=== PATIENT | female | born 1950 | race Caucasian/White ===

== ENCOUNTER 2016-12-14 18:32 | Emergency (ER) | payer BC ==
--- NOTE | 2016-12-14 19:43 | REP ---
Supine abdomen: Comparisons 09/18/2016. No calcifications are identified projected over the kidneys, ureters or urinary bladder. This is unchanged from the prior study. There are surgical clips in the abdominal right upper quadrant and right lower quadrant. This is unchanged. There is a phlebolith inferiorly in the pelvis on the right, unchanged. There is degenerative disc disease in the lumbar spine. The skeletal structures and soft tissues are otherwise unremarkable Signed by Bart Mcgrath MD 12/14/2016 07:35 P
[2016-12-14 19:52] LABS: MEAN CORPUSCULAR HEMOGLOBIN 29.9 pg (27.0-33.0); MEAN CORPUSCULAR HGB CONC 32.2 g/dl (32.0-36.5); MEAN CORPUSCULAR VOLUME 93.1 fl (80.0-96.0); RED CELL DISTRIBUTION WIDTH 14.3 % (11.5-14.5); WHITE BLOOD COUNT 8.2 K/mm3 (4.0-10.0)
[2016-12-14 20:16] LABS: CALCIUM LEVEL 8.9 MG/DL (8.8-10.2); CREATININE FOR GFR 1.72 MG/DL (0.55-1.02); GLOMERULAR FILTRATION RATE 31.8 (>45); POTASSIUM SERUM 4.3 MEQ/L (3.5-5.1)
--- NOTE | 2016-12-14 20:46 | EDDOCDS ---
Physician Documentation [facility] Name: Love John Age: 66 yrs Sex: Female : 1950 Arrival Date: 12/14/2016 Time: 18:32 Bed I8 / 16 Private MD: Santo Roberts Disposition: 12/14/16 20:38 Discharged to Home/Self Care. Impression: Unspecified renal colic. - Condition is Stable. - Discharge Instructions: Kidney Stones, Ureteral Colic. - Prescriptions for Percocet 5- 325 mg Oral Tablet - take 1 tablet by ORAL route every 6 hours As needed MDD: 4 tabs; 20 tablet. Zofran 4 mg Oral Tablet - take 1 tablet by ORAL route 4 times per day As needed; 10 tablet. - Medication Reconciliation, Local Pharmacy Hours form. - Follow up: Arthur Nance; When: 4 - 5 days; Reason: Continuance of care. - Problem is an ongoing problem. - Symptoms are unchanged. Historical: - Allergies: Cardia; - Home Meds: 1. Xarelto 20 mg oral tab 1 tab once daily in evening (Last dose: 12/13/2016) 2. levothyroxine 175 mcg Oral tab 1 tab once daily 3. Protonix 40 mg Oral grps 1 packet once daily 4. potassium citrate 15 mEq oral TbER 2 tabs 2 times per day 5. propafenone 300 mg Oral tab bid 6. metoprolol tartrate 50 mg Oral tab 1 tab 2 times per day - PMHx: Atrial Fib; Kidney stones; Hypothyroidism; Hypertension; GERD; - PSHx: Hysterectomy; Cholecystectomy; Hernia repair; Appendectomy; Tubal ligation; - Social history: Smoking status: Patient states former smoker of tobacco. No barriers to communication noted, The patient speaks fluent Fijian, Speaks appropriately for age. - Family history: Not pertinent. - : The pt / caregiver states he / she is on anticoagulants: Xarelto Home medication list is obtained from the patient. - Exposure Risk Screening:: None identified. Vital Signs: 12/14 18:34 BP 152 / 90; Pulse 75; Resp 18 S; Temp 97.8(O); Pulse Ox 96% on R/A; Weight 121.11 kg / gr2 267 lbs (R); Height 5 ft. 1 in. (154.94 cm) (R); Pain 0/10; 20:43 BP 148 / 89; Pulse 80; Resp 18; Temp 97.9(O); Pulse Ox 99% on R/A; Pain 0/10; kas2 18:34 Body Mass Index 50.45 (121.11 kg, 154.94 cm) gr2 MDM: 19:12 KUB Ordered. EDMS 19:25 CBC Ordered. EDMS 19:25 BMP Ordered. EDMS 20:32 CBC Reviewed. ke 20:32 BMP Reviewed. ke 20:32 KUB Reviewed. ke Signatures: Dispatcher [employer] EDMS Marcial Sandoval, BAGGAGE CHECKER Mandy Duncan RN RN Keke Holman RN RN kas2 MTDD
--- NOTE | 2016-12-14 20:46 | EDDOCDS ---
Nurse's Notes [facility] Name: Love John Age: 66 yrs Sex: Female : 1950 Arrival Date: 12/14/2016 Time: 18:32 Bed I8 / 16 Private MD: Santo Roberts Diagnosis: Unspecified renal colic Presentation: 12/14 18:37 Presenting complaint: Patient states: Was calloed by Dr Rosario following a CT scan and jo3 told that she had a kidney stone in her ureter. Having blood in urine with 2-3 small clots. Taking Xarelto. Acute neurological deficits are not present. Mechanism of Injury: No Mechanism of Injury. Adult Sepsis Screening: The patient does not have new or worsening altered mentation. Patient's respiratory rate is less than 22. Systolic blood pressure is greater than 100. Patient has a qSOFA score of 0- Negative Sepsis Screen. Suicide/Homicide risk assessment- the patient denies having any suicidal and/or homicidal ideations and does not present with any other emotional, behavioral or mental health complaints. 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 Transition of care: patient was not received from another setting of care. 18:37 Acuity: FERMIN Level 3 jo3 18:37 Method Of Arrival: Walkin/Carried/Asstd jo3 Triage Assessment: 18:43 General: Appears in no apparent distress, Behavior is appropriate for age, cooperative. jo3 Pain: Denies pain. Pt Declines HIV testing. Neurological: Level of Consciousness is awake, alert, Oriented to person, place, time. Respiratory: Airway is patent Respiratory effort is even, unlabored. Derm: Skin is pink, warm & dry. Historical: - Allergies: Cardia; - Home Meds: 1. Xarelto 20 mg oral tab 1 tab once daily in evening (Last dose: 12/13/2016) 2. levothyroxine 175 mcg Oral tab 1 tab once daily 3. Protonix 40 mg Oral grps 1 packet once daily 4. potassium citrate 15 mEq oral TbER 2 tabs 2 times per day 5. propafenone 300 mg Oral tab bid 6. metoprolol tartrate 50 mg Oral tab 1 tab 2 times per day - PMHx: Atrial Fib; Kidney stones; Hypothyroidism; Hypertension; GERD; - PSHx: Hysterectomy; Cholecystectomy; Hernia repair; Appendectomy; Tubal ligation; - Social history: Smoking status: Patient states former smoker of tobacco. No barriers to communication noted, The patient speaks fluent Pashto, Speaks appropriately for age. - Family history: Not pertinent. - : The pt / caregiver states he / she is on anticoagulants: Xarelto Home medication list is obtained from the patient. - Exposure Risk Screening:: None identified. Screenin:08 Screening information is obtained from the patient. Fall risk: No risks identified. kas2 Assistance ADL's: requires no assistance with activities of daily living. Abuse/DV Screen: The patient / caregiver reports he/she is: not in a situation that causes fear, pain or injury. Nutritional screening: No deficits noted. Advance Directives: Currently, there is no health care proxy. There is no active DNR order. There is no living will. There is no Power of Sanitary Engineering Teacher. home support is adequate. Assessment: 19:06 General: Appears in no apparent distress, comfortable, well nourished, well groomed, kas2 Behavior is appropriate for age, cooperative. Pain: Denies pain. Neurological: Level of Consciousness is awake, alert, Oriented to person, place, time. Cardiovascular: Rhythm is regular. Respiratory: Airway is patent Respiratory effort is even, unlabored, Respiratory pattern is regular, symmetrical. : Denies burning with urination, inability to void, pain urinary frequency, urgency. Derm: Skin is intact, Skin is dry, Skin is pink, warm & dry. Skin temperature is warm. Musculoskeletal: No deficits noted. Range of motion intact in all extremities. 20:10 General: Patient sitting up in bed with at bedside. Denies pain or discomfort kas2 at this time. Appears comfortable. Call patel within reach. Will continue to monitor.. 20:25 Musculoskeletal:. kas2 Vital Signs: 18:34 BP 152 / 90; Pulse 75; Resp 18 S; Temp 97.8(O); Pulse Ox 96% on R/A; Weight 121.11 kg gr2 (R); Height 5 ft. 1 in. (154.94 cm) (R); Pain 0/10; 20:43 BP 148 / 89; Pulse 80; Resp 18; Temp 97.9(O); Pulse Ox 99% on R/A; Pain 0/10; kas2 18:34 Body Mass Index 50.45 (121.11 kg, 154.94 cm) gr2 Vitals: 18:34 Log In Time: December 14, 2016 at 18:34. gr2 ED Course: 18:33 Patient visited by Gregoria Irvin. gr2 18:33 Patient moved to Waiting gr2 18:34 Santo Roberts is Private Physician. gr2 18:35 Patient visited by Gregoria Irvin. gr2 18:35 Patient moved to Pre RCE gr2 18:39 Triage Initiated jo3 18:44 Patient visited by Mandy Duffy RN. jo3 18:52 Patient moved to I8 / 16 js15 18:53 Marcial Sandoval FNP [facility]. ke 18:53 Patient visited by Marcial Sandoval FNP. ke 18:53 Patient visited by Marcial Sandoval FNP. ke 19:08 Patient visited by Keke Myles RN. kas2 19:41 Patient visited by Marcial Sandoval FNP. ke 19:48 No procedures done that require assistance. Labs drawn. (by ED staff). Sent per order kas to lab. 19:49 Patient visited by Keke Myles RN. kas2 19:49 KUB Returned. EDMS 19:54 Patient visited by Keke Myles RN. kas2 20:12 Patient visited by Keke Myles RN. kas2 20:38 Arthur Nance is Referral Physician. ke 20:44 The patient / caregiver is instructed regarding the plan of care and ED course. kas2 20:44 No IV's were initiated during this patient's visit. kas2 Order Results: Lab Order: CBC; SPEC'M 12/14/16 19:37 Test: WHITE BLOOD COUNT; Value: 8.2; Range: 4.0-10.0; Units: K/mm3; Status: F Test: RED BLOOD COUNT; Value: 3.86; Range: 4.00-5.40; Abnormal: Below low normal; Units: M/mm3; Status: F Test: HEMOGLOBIN; Value: 11.6; Range: 12.0-16.0; Abnormal: Below low normal; Units: g/dl; Status: F Test: HEMATOCRIT; Value: 35.9; Range: 36.0-47.0; Abnormal: Below low normal; Units: %; Status: F Test: MEAN CORPUSCULAR VOLUME; Value: 93.1; Range: 80.0-96.0; Units: fl; Status: F Test: MEAN CORPUSCULAR HEMOGLOBIN; Value: 29.9; Range: 27.0-33.0; Units: pg; Status: F Test: MEAN CORPUSCULAR HGB CONC; Value: 32.2; Range: 32.0-36.5; Units: g/dl; Status: F Test: RED CELL DISTRIBUTION WIDTH; Value: 14.3; Range: 11.5-14.5; Units: %; Status: F Test: PLATELET COUNT, AUTOMATED; Value: 198; Range: 150-450; Units: k/mm3; Status: F Lab Order: [facility] 12/14/16 19:37 Test: GLUCOSE, FASTING; Value: 126; Range: 80-110; Abnormal: Above high normal; Units: MG/DL; Status: F Test: BLOOD UREA NITROGEN; Value: 27; Range: 7-18; Abnormal: Above high normal; Units: MG/DL; Status: F Test: CREATININE FOR GFR; Value: 1.72; Range: 0.55-1.02; Abnormal: Above high normal; Units: MG/DL; Status: F Test: GLOMERULAR FILTRATION RATE; Value: 31.8; Range: >45; Abnormal: Below low normal; Status: F Test: SODIUM LEVEL; Value: 141; Range: 136-145; Units: MEQ/L; Status: F Test: POTASSIUM SERUM; Value: 4.3; Range: 3.5-5.1; Units: MEQ/L; Status: F Test: CHLORIDE LEVEL; Value: 107; Range: 98-107; Units: MEQ/L; Status: F Test: CARBON DIOXIDE LEVEL; Value: 32; Range: 21-32; Units: MEQ/L; Status: F Test: ANION GAP; Value: 2; Range: 8-16; Abnormal: Below low normal; Units: MEQ/L; Status: F Test: CALCIUM LEVEL; Value: 8.9; Range: 8.8-10.2; Units: MG/DL; Status: F Test Note: ; Units are mL/min/1.73 m2 Chronic Kidney Disease Staging per NKF: Stage I & II GFR >=60 Normal to Mildly Decreased Stage III GFR 30-59 Moderately Decreased Stage IV GFR 15-29 Severely Decreased Stage V GFR <15 Very Little GFR Left ESRD GFR <15 on AUTOMOBILE BODY REPAIRER HELPER Radiology Order: KUB Test: KUB REASON FOR EXAMINATION: Renal colic; Supine abdomen:; ; Comparisons 09/18/2016.; ; No calcifications are identified projected over the kidneys, ureters or urinary; bladder. This is unchanged from the prior study.; ; There are surgical clips in the abdominal right upper quadrant and right lower; quadrant. This is unchanged.; ; There is a phlebolith inferiorly in the pelvis on the right, unchanged.; ; There is degenerative disc disease in the lumbar spine.; ; The skeletal structures and soft tissues are otherwise unremarkable; ; ; ; ; Signed by; Bart Mcgrath MD 12/14/2016 07:35 P; Outcome: 20:38 Discharge ordered by Provider. ke 20:44 Discharge Assessment: patient administered narcotics - no. The following High Risk kas2 Discharge criteria are identified: None. Discharged to home ambulatory, with significant other. Condition: good Condition: stable Condition: improved. Ultrasound Study completed. Property :Personal belongings accompany Pt. 20:45 Patient left the ED. kas2 Signatures: Dispatcher [employer] EDMarcial Graham, STEAM AND GAS TURBINES ASSEMBLER Mandy DuncanRN RN Gregoria Knight gr2 Citlaly Cardenas RN RN js15 Keke MylesRN RN ivanna2 MTDSadia
--- NOTE | 2016-12-16 21:46 | EDDOCDS ---
Physician Documentation [facility] Name: Love John Age: 66 yrs Sex: Female : 1950 Arrival Date: 12/14/2016 Time: 18:32 Bed I8 / 16 Private MD: Santo Roberts Disposition: 12/14/16 20:38 Discharged to Home/Self Care. Impression: Unspecified renal colic. - Condition is Stable. - Discharge Instructions: Kidney Stones, Ureteral Colic. - Prescriptions for Percocet 5- 325 mg Oral Tablet - take 1 tablet by ORAL route every 6 hours As needed MDD: 4 tabs; 20 tablet. Zofran 4 mg Oral Tablet - take 1 tablet by ORAL route 4 times per day As needed; 10 tablet. - Medication Reconciliation, Local Pharmacy Hours form. - Follow up: Arthur Nance; When: 4 - 5 days; Reason: Continuance of care. - Problem is an ongoing problem. - Symptoms are unchanged. Historical: - Allergies: Cardia; - Home Meds: 1. Xarelto 20 mg oral tab 1 tab once daily in evening (Last dose: 12/13/2016) 2. levothyroxine 175 mcg Oral tab 1 tab once daily 3. Protonix 40 mg Oral grps 1 packet once daily 4. potassium citrate 15 mEq oral TbER 2 tabs 2 times per day 5. propafenone 300 mg Oral tab bid 6. metoprolol tartrate 50 mg Oral tab 1 tab 2 times per day - PMHx: Atrial Fib; Kidney stones; Hypothyroidism; Hypertension; GERD; - PSHx: Hysterectomy; Cholecystectomy; Hernia repair; Appendectomy; Tubal ligation; - Social history: Smoking status: Patient states former smoker of tobacco. No barriers to communication noted, The patient speaks fluent Maldivian, Speaks appropriately for age. - Family history: Not pertinent. - : The pt / caregiver states he / she is on anticoagulants: Xarelto Home medication list is obtained from the patient. - Exposure Risk Screening:: None identified. Vital Signs: 12/14 18:34 BP 152 / 90; Pulse 75; Resp 18 S; Temp 97.8(O); Pulse Ox 96% on R/A; Weight 121.11 kg / gr2 267 lbs (R); Height 5 ft. 1 in. (154.94 cm) (R); Pain 0/10; 20:43 BP 148 / 89; Pulse 80; Resp 18; Temp 97.9(O); Pulse Ox 99% on R/A; Pain 0/10; kas2 18:34 Body Mass Index 50.45 (121.11 kg, 154.94 cm) gr2 MDM: 19:12 KUB Ordered. EDMS 19:25 CBC Ordered. EDMS 19:25 BMP Ordered. EDMS 20:32 CBC Reviewed. ke 20:32 BMP Reviewed. ke 20:32 KUB Reviewed. ke 21:08 [facility] Payment Agreement was scanned into [employer] and attached to record. gjb : Financial registration complete. gjb 12/15 08:11 T-Sheet-- Draft Copy was scanned into [employer] and attached to record. gb Signatures: Dispatcher [employer] EDVianney Butler, Reg Reg Marcial Pineda, CLINICAL LAB SPECIALIST CLINICAL LAB SPECIALIST Mandy Terry RN RN jo3 Beck, Gabriela [facility] Keke Myles RN RN kas2 The chart was reviewed and I authenticate all verbal orders and agree with the evaluation and treatment provided.Attachments: 12/14 21:08 [facility] Payment Agreement gjb 12/15 08:11 T-Sheet-- Draft Copy gb Chart Complete MTDD
--- NOTE | 2016-12-16 21:46 | EDDOCDS ---
Physician Documentation [facility] Name: Love John Age: 66 yrs Sex: Female : 1950 Arrival Date: 12/14/2016 Time: 18:32 Bed I8 / 16 Private MD: Santo Roberts Disposition: 12/14/16 20:38 Discharged to Home/Self Care. Impression: Unspecified renal colic. - Condition is Stable. - Discharge Instructions: Kidney Stones, Ureteral Colic. - Prescriptions for Percocet 5- 325 mg Oral Tablet - take 1 tablet by ORAL route every 6 hours As needed MDD: 4 tabs; 20 tablet. Zofran 4 mg Oral Tablet - take 1 tablet by ORAL route 4 times per day As needed; 10 tablet. - Medication Reconciliation, Local Pharmacy Hours form. - Follow up: Arthur Nance; When: 4 - 5 days; Reason: Continuance of care. - Problem is an ongoing problem. - Symptoms are unchanged. Historical: - Allergies: Cardia; - Home Meds: 1. Xarelto 20 mg oral tab 1 tab once daily in evening (Last dose: 12/13/2016) 2. levothyroxine 175 mcg Oral tab 1 tab once daily 3. Protonix 40 mg Oral grps 1 packet once daily 4. potassium citrate 15 mEq oral TbER 2 tabs 2 times per day 5. propafenone 300 mg Oral tab bid 6. metoprolol tartrate 50 mg Oral tab 1 tab 2 times per day - PMHx: Atrial Fib; Kidney stones; Hypothyroidism; Hypertension; GERD; - PSHx: Hysterectomy; Cholecystectomy; Hernia repair; Appendectomy; Tubal ligation; - Social history: Smoking status: Patient states former smoker of tobacco. No barriers to communication noted, The patient speaks fluent Djiboutian, Speaks appropriately for age. - Family history: Not pertinent. - : The pt / caregiver states he / she is on anticoagulants: Xarelto Home medication list is obtained from the patient. - Exposure Risk Screening:: None identified. Vital Signs: 12/14 18:34 BP 152 / 90; Pulse 75; Resp 18 S; Temp 97.8(O); Pulse Ox 96% on R/A; Weight 121.11 kg / gr2 267 lbs (R); Height 5 ft. 1 in. (154.94 cm) (R); Pain 0/10; 20:43 BP 148 / 89; Pulse 80; Resp 18; Temp 97.9(O); Pulse Ox 99% on R/A; Pain 0/10; kas2 18:34 Body Mass Index 50.45 (121.11 kg, 154.94 cm) gr2 MDM: 19:12 KUB Ordered. EDMS 19:25 CBC Ordered. EDMS 19:25 BMP Ordered. EDMS 20:32 CBC Reviewed. ke 20:32 BMP Reviewed. ke 20:32 KUB Reviewed. ke 21:08 [facility] Payment Agreement was scanned into [facility] and attached to record. gjb : Financial registration complete. gjb 12/15 08:11 T-Sheet-- Draft Copy was scanned into [employer] and attached to record. gb Signatures: Dispatcher [employer] EDVianney Butler, Reg Reg Marcial Pineda, JEWEL FLAT SURFACER JEWEL FLAT SURFACER Mandy Terry RN RN jo3 Beck, Gabriela [facility] Keke Myles RN RN kas2 The chart was reviewed and I authenticate all verbal orders and agree with the evaluation and treatment provided.Attachments: 12/14 21:08 [facility] Payment Agreement gjb 12/15 08:11 T-Sheet-- Draft Copy gb Chart Complete MTDD
--- NOTE | 2016-12-16 21:47 | EDDOCDS ---
Nurse's Notes [facility] Name: Love John Age: 66 yrs Sex: Female : 1950 Arrival Date: 12/14/2016 Time: 18:32 Bed I8 / 16 Private MD: Santo Roberts Diagnosis: Unspecified renal colic Presentation: 12/14 18:37 Presenting complaint: Patient states: Was calloed by Dr Rosario following a CT scan and jo3 told that she had a kidney stone in her ureter. Having blood in urine with 2-3 small clots. Taking Xarelto. Acute neurological deficits are not present. Mechanism of Injury: No Mechanism of Injury. Adult Sepsis Screening: The patient does not have new or worsening altered mentation. Patient's respiratory rate is less than 22. Systolic blood pressure is greater than 100. Patient has a qSOFA score of 0- Negative Sepsis Screen. Suicide/Homicide risk assessment- the patient denies having any suicidal and/or homicidal ideations and does not present with any other emotional, behavioral or mental health complaints. 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 Transition of care: patient was not received from another setting of care. 18:37 Acuity: FERMIN Level 3 jo3 18:37 Method Of Arrival: Walkin/Carried/Asstd jo3 Triage Assessment: 18:43 General: Appears in no apparent distress, Behavior is appropriate for age, cooperative. jo3 Pain: Denies pain. Pt Declines HIV testing. Neurological: Level of Consciousness is awake, alert, Oriented to person, place, time. Respiratory: Airway is patent Respiratory effort is even, unlabored. Derm: Skin is pink, warm & dry. Historical: - Allergies: Cardia; - Home Meds: 1. Xarelto 20 mg oral tab 1 tab once daily in evening (Last dose: 12/13/2016) 2. levothyroxine 175 mcg Oral tab 1 tab once daily 3. Protonix 40 mg Oral grps 1 packet once daily 4. potassium citrate 15 mEq oral TbER 2 tabs 2 times per day 5. propafenone 300 mg Oral tab bid 6. metoprolol tartrate 50 mg Oral tab 1 tab 2 times per day - PMHx: Atrial Fib; Kidney stones; Hypothyroidism; Hypertension; GERD; - PSHx: Hysterectomy; Cholecystectomy; Hernia repair; Appendectomy; Tubal ligation; - Social history: Smoking status: Patient states former smoker of tobacco. No barriers to communication noted, The patient speaks fluent Faroese, Speaks appropriately for age. - Family history: Not pertinent. - : The pt / caregiver states he / she is on anticoagulants: Xarelto Home medication list is obtained from the patient. - Exposure Risk Screening:: None identified. Screenin:08 Screening information is obtained from the patient. Fall risk: No risks identified. kas2 Assistance ADL's: requires no assistance with activities of daily living. Abuse/DV Screen: The patient / caregiver reports he/she is: not in a situation that causes fear, pain or injury. Nutritional screening: No deficits noted. Advance Directives: Currently, there is no health care proxy. There is no active DNR order. There is no living will. There is no Power of Acquisition Professional. home support is adequate. Assessment: 19:06 General: Appears in no apparent distress, comfortable, well nourished, well groomed, kas2 Behavior is appropriate for age, cooperative. Pain: Denies pain. Neurological: Level of Consciousness is awake, alert, Oriented to person, place, time. Cardiovascular: Rhythm is regular. Respiratory: Airway is patent Respiratory effort is even, unlabored, Respiratory pattern is regular, symmetrical. : Denies burning with urination, inability to void, pain urinary frequency, urgency. Derm: Skin is intact, Skin is dry, Skin is pink, warm & dry. Skin temperature is warm. Musculoskeletal: No deficits noted. Range of motion intact in all extremities. 20:10 General: Patient sitting up in bed with at bedside. Denies pain or discomfort kas2 at this time. Appears comfortable. Call patel within reach. Will continue to monitor.. 20:25 Musculoskeletal:. kas2 Vital Signs: 18:34 BP 152 / 90; Pulse 75; Resp 18 S; Temp 97.8(O); Pulse Ox 96% on R/A; Weight 121.11 kg gr2 (R); Height 5 ft. 1 in. (154.94 cm) (R); Pain 0/10; 20:43 BP 148 / 89; Pulse 80; Resp 18; Temp 97.9(O); Pulse Ox 99% on R/A; Pain 0/10; kas2 18:34 Body Mass Index 50.45 (121.11 kg, 154.94 cm) gr2 Vitals: 18:34 Log In Time: December 14, 2016 at 18:34. gr2 ED Course: 18:33 Patient visited by Gregoria Irvin. gr2 18:33 Patient moved to Waiting gr2 18:34 Santo Roberts is Private Physician. gr2 18:35 Patient visited by Gregoria Irvin. gr2 18:35 Patient moved to Pre RCE gr2 18:39 Triage Initiated jo3 18:44 Patient visited by Mandy Duffy RN. jo3 18:52 Patient moved to I8 / 16 js15 18:53 Marcial Sandoval FNP is [facility]. ke 18:53 Patient visited by Marcial Sandoval FNP. ke 18:53 Patient visited by Marcial Sandoval FNP. ke 19:08 Patient visited by Keke Myles RN. kas2 19:41 Patient visited by Marcial Sandoval FNP. ke 19:48 No procedures done that require assistance. Labs drawn. (by ED staff). Sent per order kas to lab. 19:49 Patient visited by Keke Myles RN. kas2 19:49 KUB Returned. EDMS 19:54 Patient visited by Keke Myles RN. kas2 20:12 Patient visited by Keke Myles RN. kas2 20:38 Arthur Nance is Referral Physician. ke 20:44 The patient / caregiver is instructed regarding the plan of care and ED course. kas2 20:44 No IV's were initiated during this patient's visit. kas2 21:08 [facility] Payment Agreement was scanned into WebEvents and attached to record. gjb 21:15 Patient name changed from Love\S\\S\Walsemann\S\ to Love\S\ \S\Walsemann. EDMS 12/15 08:11 T-Sheet-- Draft Copy was scanned into WebEvents and attached to record. gb Order Results: Lab Order: CBC; SPEC'M 12/14/16 19:37 Test: WHITE BLOOD COUNT; Value: 8.2; Range: 4.0-10.0; Units: K/mm3; Status: F Test: RED BLOOD COUNT; Value: 3.86; Range: 4.00-5.40; Abnormal: Below low normal; Units: M/mm3; Status: F Test: HEMOGLOBIN; Value: 11.6; Range: 12.0-16.0; Abnormal: Below low normal; Units: g/dl; Status: F Test: HEMATOCRIT; Value: 35.9; Range: 36.0-47.0; Abnormal: Below low normal; Units: %; Status: F Test: MEAN CORPUSCULAR VOLUME; Value: 93.1; Range: 80.0-96.0; Units: fl; Status: F Test: MEAN CORPUSCULAR HEMOGLOBIN; Value: 29.9; Range: 27.0-33.0; Units: pg; Status: F Test: MEAN CORPUSCULAR HGB CONC; Value: 32.2; Range: 32.0-36.5; Units: g/dl; Status: F Test: RED CELL DISTRIBUTION WIDTH; Value: 14.3; Range: 11.5-14.5; Units: %; Status: F Test: PLATELET COUNT, AUTOMATED; Value: 198; Range: 150-450; Units: k/mm3; Status: F Lab Order: [facility]; SPEC'M 12/14/16 19:37 Test: GLUCOSE, FASTING; Value: 126; Range: 80-110; Abnormal: Above high normal; Units: MG/DL; Status: F Test: BLOOD UREA NITROGEN; Value: 27; Range: 7-18; Abnormal: Above high normal; Units: MG/DL; Status: F Test: CREATININE FOR GFR; Value: 1.72; Range: 0.55-1.02; Abnormal: Above high normal; Units: MG/DL; Status: F Test: GLOMERULAR FILTRATION RATE; Value: 31.8; Range: >45; Abnormal: Below low normal; Status: F Test: SODIUM LEVEL; Value: 141; Range: 136-145; Units: MEQ/L; Status: F Test: POTASSIUM SERUM; Value: 4.3; Range: 3.5-5.1; Units: MEQ/L; Status: F Test: CHLORIDE LEVEL; Value: 107; Range: 98-107; Units: MEQ/L; Status: F Test: CARBON DIOXIDE LEVEL; Value: 32; Range: 21-32; Units: MEQ/L; Status: F Test: ANION GAP; Value: 2; Range: 8-16; Abnormal: Below low normal; Units: MEQ/L; Status: F Test: CALCIUM LEVEL; Value: 8.9; Range: 8.8-10.2; Units: MG/DL; Status: F Test Note: ; Units are mL/min/1.73 m2 Chronic Kidney Disease Staging per NKF: Stage I & II GFR >=60 Normal to Mildly Decreased Stage III GFR 30-59 Moderately Decreased Stage IV GFR 15-29 Severely Decreased Stage V GFR <15 Very Little GFR Left ESRD GFR <15 on RIGGER THIRD Radiology Order: KUB Test: KUB REASON FOR EXAMINATION: Renal colic; Supine abdomen:; ; Comparisons 09/18/2016.; ; No calcifications are identified projected over the kidneys, ureters or urinary; bladder. This is unchanged from the prior study.; ; There are surgical clips in the abdominal right upper quadrant and right lower; quadrant. This is unchanged.; ; There is a phlebolith inferiorly in the pelvis on the right, unchanged.; ; There is degenerative disc disease in the lumbar spine.; ; The skeletal structures and soft tissues are otherwise unremarkable; ; ; ; ; Signed by; Bart Mcgrath MD 12/14/2016 07:35 P; Outcome: 12/14 20:38 Discharge ordered by Provider. 20:44 Discharge Assessment: patient administered narcotics - no. The following High Risk kas2 Discharge criteria are identified: None. Discharged to home ambulatory, with significant other. Condition: good Condition: stable Condition: improved. Ultrasound Study completed. Property :Personal belongings accompany Pt. 20:45 Patient left the ED. kas2 Signatures: Dispatcher [employer] EDVianney Butler, Taurus Reg Marcial Pineda, BOW MAKER GIFT WRAPPING BOW MAKER GIFT WRAPPING Mandy TerryRN RN Gregoria Knight2 Citlaly Cardenas,RN RN Prudence Cano KimRN RN ivanna2 Chart Complete MTDD
== END 2016-12-14 20:45 | disposition home or self-care (01) ==
LOC: M ED 18:32
DX: N20.1 Calculus of ureter (principal); I48.91 Unspecified atrial fibrillation; E03.9 Hypothyroidism, unspecified; I10 Essential (primary) hypertension; K21.9 Gastro-esophageal reflux disease without esophagitis; Z87.442 Personal history of urinary calculi; Z87.891 Personal history of nicotine dependence; Z79.01 Long term (current) use of anticoagulants; Z79.899 Other long term (current) drug therapy; Z88.8 Allergy status to other drugs, medicaments and biological substances

== ENCOUNTER → 2017-01-24 | Outpatient (CLI) | payer BC, OTHER ==
[~2017-01-24] MED LIST: HYDR-3713 PO; ISOVUE-300 61% 50ML VIAL (Q9967) As Ordered ONE; KEFL500C7 PO; LEVO75TA4 PO; LIDOCAINE 2% MDV 20 ML VIAL As Ordered ONE; LR 1,000 ML IV SCH; METO50TA2 PO; MIDAZOLAM INJ 2 MG/2 ML VIAL (J2250) As Ordered ONE; NORCO, ANEXSIA 5/325MG TABLET (HYDROcodone/ACETAMINOPHEN) PO PRN; ONDANSETRON 4MG/2ML VIAL (J2405) IV PRN; POTA4.25 PO; PRAD150C PO; PROT1TAB2 PO; SODIUM BICARBONATE 8.4% INJ 50MEQ 50 ML VIAL As Ordered ONE; cefTRIAXone SOD 1 GM VIAL (J0696) As Ordered ONE; fentaNYL 100 MCG/2 ML INJECTION (J3010) As Ordered ONE; fentaNYL 100 MCG/2 ML INJECTION (J3010) IV PRN
[2017-01-24 17:15] VITALS: BP 128/68
--- NOTE | 2017-01-24 18:07 | REPKIM ---
CLINICAL HISTORY: Patient presents with multiple left kidney stones and hydronephrosis. The referring urology service has requested a nephroureteral catheter (stent) placement for preop percutaneous nephrolithotripsy urology procedure. PROCEDURE PERFORMED: 1. Ultrasound Left Kidney 2. Percutaneous antegrade Nephrostogram 3. Attempted nephroureteral catheter placement 4. Percutaneous Nephrostomy urinary diversion tube placement INTERVENTIONALIST: Luis Davies MD CONSENT: The risks, benefits and alternatives to the procedure were explained to the patient and informed written consent was obtained. SEDATION: Sedation and analgesia was provided by the Anesthesiology Dept. MEDICATIONS: Rocephin 1gm IV, Local Lidocaine CONTRAST: 50 mL Isovue 300 EBL: less than 10 mL FLUORO TIME: 8.9 minutes DEVICE USED: 10F Resolve nephrostomy catheter Lot #[id number] PROCEDURE/FINDINGS: The patient was brought to the interventional radiology suite and placed in the prone position, left flank prepped and draped in the usual sterile fashion. Time out procedure was performed. Ultrasound of the kidney showed multiple staghorn calculi and lower pole calyceal stone. This also showed moderate hydronephrosis. Using ultrasound and fluoroscopy guidance, a 21-gauge Accustick needle was advanced into the targeted lower pole calyceal stone of the left kidney, after infiltration of the skin and deep tissues with local anesthetic. A sample of the urine sent for culture. Contrast was injected and DSA images were obtained. Nephrostogram showed near obstructing ureteral stone in the proximal ureter with minimal antegrade flow of contrast. A vascular sheath was then placed with its tip in the renal pelvis. A 5-Latvian Kumpe catheter was then introduced coaxially. Using a hydrophilic guidewire, the guidewire was advanced around the proximal ureteral stone into the urinary bladder. The wire was then exchanged for a stiff wire. I was not able to advance the 5-Latvian Kumpe catheter over the guidewire across the obstructing proximal ureteral stone. Patient was found to have a short period (approximately 10-15 seconds) of asystole per anesthesiologist. Patient spontaneously recovered to her baseline controlled rhythm (AF with rate of around 80s) and blood pressures within seconds. A 10-Latvian nephrostomy catheter was introduced over the guidewire and the distal end of the loop positioned in the renal pelvis. The nephrostomy catheter was then flushed and connected to gravity bag. A sterile dressing was applied. This procedure was performed using ultrasound and fluoroscopy. Dr. Davies was present. IMPRESSION: 1. Staghorn calculus, moderate hydronephrosis associated with obstructing proximal ureteral stone(s) on the left. A sample of urine sent for c/s. 2. Nephrostogram demonstrates obstructing proximal ureteral stone(s). A guidewire was successfully advanced across the proximal obstructing ureteral stone into the urinary bladder, however even a 5-Latvian catheter could not be advanced across the proximal ureteral obstruction. Unsuccessful NU catheter placement. 3. Successful 10F nephrostomy urinary diversion catheter placement via the lower pole calyceal stone with its tip positioned in the renal pelvis. 4. An episode of short duration asystole. Patient with a history of rate controlled underlying AF. Findings discussed via phone with Dr. Nance at the completion of this study. Asystole episode also discussed with the patients patrol lady. Patient will be seen by her patrol lady tomorrow. cc: MD Rosalba Garcia NP MTDD
--- NOTE | 2017-01-25 07:25 | ECGEPIP ---
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
== END | disposition home or self-care (01) ==
LOC: M IRPRO 11:43
PROVIDERS: ATTEND Urology
DX: N13.2 Hydronephrosis with renal and ureteral calculous obstruction (principal)
CPT/HCPCS: 50432; 87070; 87075; 87205; 93005; C1729; C1769; C1887; C1894; J0696; J2250; J3010; Q9967

== ENCOUNTER 2017-01-28 10:00 | Day surgery (SDC) | payer BC, OTHER ==
[~2017-01-28] VITALS: Ht 152.4 cm; Wt 117.0 kg
[~2017-01-28 10:00] MED LIST changes: -ISOVUE-300 61% 50ML VIAL (Q9967) As Ordered ONE; -KEFL500C7 PO; -LIDOCAINE 2% MDV 20 ML VIAL As Ordered ONE; -MIDAZOLAM INJ 2 MG/2 ML VIAL (J2250) As Ordered ONE; -NORCO, ANEXSIA 5/325MG TABLET (HYDROcodone/ACETAMINOPHEN) PO PRN; -ONDANSETRON 4MG/2ML VIAL (J2405) IV PRN; -SODIUM BICARBONATE 8.4% INJ 50MEQ 50 ML VIAL As Ordered ONE; -cefTRIAXone SOD 1 GM VIAL (J0696) As Ordered ONE; -fentaNYL 100 MCG/2 ML INJECTION (J3010) As Ordered ONE; -fentaNYL 100 MCG/2 ML INJECTION (J3010) IV PRN
[2017-01-28] MEDS ORDERED: KEFL500C7 PO (10:30)
[2017-01-28] MEDS ORDERED: METOPROLOL TART 25 MG TABLET As Ordered ONE (10:59)
[2017-01-28 11:00] VITALS: BP 130/80
[2017-01-28] MEDS ORDERED: METOPROLOL TART 50 MG TAB PO ONE (11:00)
[2017-01-28] MEDS ORDERED: CONRAY-60 60% 50ML VIAL (Q9961) As Ordered ONE (11:41)
[2017-01-28] MEDS ORDERED: LIDOCAINE 2% INJ 100 MG/5 ML SDV (FOR ANES.) As Ordered ONE ×2 (12:05→12:31)
[2017-01-28] MEDS ORDERED: fentaNYL 100 MCG/2 ML INJECTION (J3010) As Ordered ONE ×2 (12:30→13:30)
[2017-01-28] MEDS ORDERED: MIDAZOLAM INJ 2 MG/2 ML VIAL (J2250) As Ordered ONE (12:30)
[2017-01-28] MEDS ORDERED: PROPOFOL 200 MG/20 ML VIAL As Ordered ONE (12:30)
[2017-01-28] MEDS ORDERED: ONDANSETRON 4MG/2ML VIAL (J2405) As Ordered ONE (12:31)
[2017-01-28] MEDS ORDERED: NEOSTIGMINE 1MG/ML 5 ML SYRINGE (J2710) As Ordered ONE (12:31)
[2017-01-28] MEDS ORDERED: ROCURONIUM BROMIDE 50 MG/5 ML VIAL As Ordered ONE (12:31)
[2017-01-28] MEDS ORDERED: dexameTHASONE 4 MG/ML 1ML VIAL (J1100) As Ordered ONE (12:31)
[2017-01-28] MEDS ORDERED: GLYCOPYRROLATE INJ 0.2 MG/ML 2 ML VIAL As Ordered ONE (12:31)
[2017-01-28] MEDS ORDERED: oxyBUTYnin 5 MG TAB PO PRN (15:15)
[2017-01-28] MEDS ORDERED: PERCOCET 5MG/325MG TAB PO PRN ×2 (15:15)
--- NOTE | 2017-01-28 15:16 | REP ---
Retrograde pyelogram: History: Nephrolithiasis. 21 seconds of fluoroscopy time is reported. Findings: A sequence of three fluoroscopically obtained last image hold spot radiographs of the abdomen document left ureteral stent position. A percutaneous nephrostomy tube appears to have been withdrawn on the left. Signed by Noe Rodriguez MD 01/28/2017 07:18 P
[2017-01-28] MEDS ORDERED: LR 1,000 ML IV SCH (15:45)
[2017-01-28] MEDS ORDERED: ONDANSETRON 4MG/2ML VIAL (J2405) IV PRN (15:45)
[2017-01-28] MEDS ORDERED: METOCLOPRAMIDE INJ 10MG/2ML VIAL (J2765) IV PRN (15:45)
[2017-01-28] MEDS ORDERED: fentaNYL 100 MCG/2 ML INJECTION (J3010) IV PRN (15:45)
[2017-01-28 17:35] VITALS: BP 103/71
--- NOTE | 2017-01-29 10:35 | RO ---
DATE OF PROCEDURE: 01/28/2017 PREPROCEDURE DIAGNOSIS: Left kidney and ureteral stones. POSTPROCEDURE DIAGNOSIS: Left kidney and ureteral stones. PROCEDURE: Cystoscopy, left ureteroscopy with laser lithotripsy and basket extraction of stones, left retrograde pyelogram with intraoperative interpretation of images, left ureteral stent placement. SURGEON: Dr. Arthur Nance AIR CONDITIONING EQUIPMENT MECHANIC: None. ANESTHESIA: General. OPERATIVE INDICATIONS: This is a 66-year-old female with multiple large left sided kidney stones. She was sent to interventional radiology last week to have a left nephroureteral stent placement in preparation for a percutaneous nephrolithotomy today. Unfortunately, they were not able to get a nephroureteral stent down the ureter due to an obstructing stone in the ureter. Therefore, a left nephrostomy tube was placed instead and the plan is to bring her here for ureteroscopy to remove the left ureteral stones and try to remove as much of the stone burden today. DESCRIPTION OF PROCEDURE: The patient was brought to the operating room and general anesthesia was induced. Prophylactic antibiotics were infused. She was then placed in dorsal lithotomy position and prepped and draped in the usual sterile fashion. A rigid cystoscope was then inserted into the urethral meatus and advanced to the bladder. Once within the bladder, a guidewire was advanced up the left collecting system. The cystoscope was then removed and the guidewire was utilized to advance an ureteral access sheath up into the left collecting system. The stylet was then removed and the wire was secured to the drapes to serve as a safety wire. I then went up the access sheath with the flexible ureteroscope and within the proximal left ureter, an approximately 8 mm stone was seen. The stone was then fragmented into smaller pieces using a 200 micron laser fiber and the pieces were removed with the basket. I then examined the remainder of the kidney and there were several large stones measuring at least a centimeter to a centimeter and a half in size. Some of them were in the upper pole and then the majority were within the lower pole calyx. I then utilized the 200 micron laser fiber to fragment all these stones into smaller pieces and a large amount of the pieces were removed using a basket. I was not going to be able to remove all of the fragments today, so I tried to fragment all of the stones into small enough pieces where they should hopefully be able to pass and if they cannot pass they may potentially dissolve with potassium citrate therapy as she has been demonstrated to form uric acid stones previously. After ensuring that all of the larger fragments had been either fragmented into smaller pieces or removed, a retrograde pyelogram was performed. It was negative for extravasation. At this point, the ureteral access sheath was removed as well as the ureteroscope and no stones were seen behind the access sheath. I then utilized the previously placed wire to advance a 7 Swedish x 22-32 cm JJ ureteral stent up into the left collecting system. The wire was then removed and there were adequate curls of the stent in the left renal pelvis and in the bladder. At this point, the previously placed left nephrostomy tube was removed as well. When I did this, of note, the patient had a moderate amount of what appeared to be arterial bleeding from her nephrostomy tube site. This was unusual, but the bleeding would not stop with compression alone. I therefore prepped the area and placed a #2-0 chromic evaryt-it-xexiy stitch in the skin and this stopped the bleeding. At this point, dressings were applied. The patient was then taken out of the dorsal lithotomy position, awakened from anesthesia and transported to the recovery room in stable condition. ESTIMATED BLOOD LOSS: 20 mL. COMPLICATIONS: None. SPECIMENS: Kidney stone fragments. PLAN: I will leave the patient's stent in for approximately 6 weeks. I will keep her on potassium citrate dissolution therapy as well. I will plan to get a CAT scan in approximately 6 weeks to see what her residual stone burden is. If it appears the majority of the stones have either passed or dissolved in smaller fragments by that time, I will remove her stent. MARY
[2017-02-06 00:06] LABS: Uric Acid 100 % (.)
== END 2017-01-28 17:45 | disposition home or self-care (01) ==
LOC: M OR 10:00 → UNDOADMIN 10:00 → M SDC 10:00 → M OR 10:01 → M RR INP 10:01 → M SDC 17:45 → UNDODISIN 17:45
PROVIDERS: ATTEND Urology
DX: N20.0 Calculus of kidney (principal); N20.1 Calculus of ureter; I48.91 Unspecified atrial fibrillation; I10 Essential (primary) hypertension; E03.9 Hypothyroidism, unspecified; K44.9 Diaphragmatic hernia without obstruction or gangrene; Z79.02 Long term (current) use of antithrombotics/antiplatelets; Z79.899 Other long term (current) drug therapy
CPT/HCPCS: 36415; 52352; 52356; 74420; 82360; 86850; 86900; 86901; 88300; C2617; J0690; J1100; J2250; J2405; J2710; J3010; Q9961

== ENCOUNTER 2017-01-31 03:50 | Emergency (ER) | payer BC, OTHER ==
[~2017-01-31] VITALS: Ht 152.4 cm; Wt 117.0 kg
[~2017-01-31 03:50] MED LIST changes: +KEFL500C7 PO; -LR 1,000 ML IV SCH
[2017-01-31] MEDS ORDERED: DITR5TAB PO (04:06)
[2017-01-31 05:02] LABS: BASO % 0.6 % (0.0-1.0); EOS # 0.2 K/mm3 (0.0-0.50); EOS % 3.1 % (0.0-3.0); LARGE UNSTAINED CELL # 0.2 K/mm3 (0.0-0.4); LARGE UNSTAINED CELL % 2.1 % (0.0-4.0); LYMPH # 1.2 K/mm3 (1.5-4.5); LYMPH % 17.3 % (24.0-44.0); MEAN CORPUSCULAR HEMOGLOBIN 29.7 pg (27.0-33.0); MEAN CORPUSCULAR HGB CONC 31.9 g/dl (32.0-36.5); MEAN CORPUSCULAR VOLUME 93.1 fl (80.0-96.0); MONO # 0.4 K/mm3 (0.0-0.8); MONO % 5.5 % (0.0-5.0); NEUTROPHILS % 71.4 % (36.0-66.0); PLATELET COUNT, AUTOMATED 258 k/mm3 (150-450); RED CELL DISTRIBUTION WIDTH 13.2 % (11.5-14.5)
[2017-01-31 05:08] LABS: CREATININE FOR GFR 1.49 MG/DL (0.55-1.02); GLOMERULAR FILTRATION RATE 37.5 (>45); POTASSIUM SERUM 3.9 MEQ/L (3.5-5.1)
[2017-01-31] MEDS ORDERED: CIPROFLOXACIN 400 MG in APPROPRIATE DILUENT 1 EA IV ONE (06:15)
[2017-01-31] MEDS ORDERED: NS 1,000 ML IV ONE (06:15)
--- NOTE | 2017-01-31 06:20 | REPUSA ---
CLINICAL HISTORY: Abdominal pain. TECHNIQUE: Multiple axial, sagittal and coronal CT images were obtained through the abdomen and pelvi s without administration of oral or IV contrast material. COMMENTS: Comparison is made to the prior exam 12/13/2016. The liver is of uniform attenuation without mass or defect. There is no intra or extrahepatic biliary ductal dilatation. The spleen is normal. The gallbladder is surgically absent. The pancreas is of no rmal contour and attenuation characteristics. There is no evidence of adrenal mass. There is decrease in left hydroureteronephrosis. Left double-J catheter was inserted in good position. Small sliding hiatal hernia. There is decrease in the size and number of left renal stones. The largest measures 8 mm. Increased left perirenal fat stranding. No ureteral calculi are identified. There is no evidence for appendicitis. There is no bowel wall thickening. No evidence for small or la rge bowel obstruction. There is no evidence of abdominal ascites or lymphadenopathy. There is no evidence of intrinsic or extrinsic bladder mass. There is no pelvic ascites or lymphadeno kiana. Distended urinary bladder. Images of the lung bases show no evidence of pleural or parenchymal mass. There are no pleural effusi ons. The bony structures are free of lytic or blastic lesions. Multilevel degenerative changes are seen in volving the thoracolumbar spine. Scattered calcifications are seen involving the aorta and major branches compatible with atherosclero sis. IMPRESSION: Decrease in left hydroureteronephrosis. Increased left perirenal fat stranding. This can be secondary to recent intervention versus an associ ated infection. Decrease in the size and number of left renal stones. No residual ureteral stones are noted. Significantly distended the bladder suggestive of retention. Unchanged anterior abdominal wall containing nonincarcerated bowels. Thank you for your kind referral of this patient.
[2017-01-31] MEDS ORDERED: CIPR500T89 PO (06:44)
[2017-01-31 08:21] VITALS: BP 122/79
== END 2017-01-31 08:35 | disposition home or self-care (01) ==
LOC: M ED 04:26
DX: N39.0 Urinary tract infection, site not specified (principal); R33.9 Retention of urine, unspecified; N20.0 Calculus of kidney; K21.9 Gastro-esophageal reflux disease without esophagitis; I48.91 Unspecified atrial fibrillation; Z96.0 Presence of urogenital implants; Z79.899 Other long term (current) drug therapy; Z88.8 Allergy status to other drugs, medicaments and biological substances
CPT/HCPCS: 36415; 51702; 74176; 80048; 81001; 85025; 87086; 96365; 99284; J0744

== ENCOUNTER → 2017-02-05 | Outpatient (REF) | payer OTHER ==
[~2017-02-05] MED LIST changes: +CIPR500T89 PO; +DITR5TAB PO
== END ==
LOC: M SMT 09:27
PROVIDERS: ATTEND Urology
DX: N20.0 Calculus of kidney (principal)

== ENCOUNTER → 2017-04-10 | Outpatient (CLI) | payer BC, OTHER ==
--- NOTE | 2017-04-11 12:49 | SLEEPCENT ---
DATE OF PROCEDURE: 04/10/2017 REFERRING PHYSICIAN: Carmina Child Nocturnal polysomnography was performed for evaluation of sleep apnea syndrome symptoms in this patient with a history of excessive somnolence and nonrestorative sleep. 8 ours and 13 minutes of data were reviewed. There were 264 minutes of sleep identified. Sleep latency was prolonged at 56 minutes. Rapid eye movement (REM) latency was normal at 97 minutes. Sleep architecture was fair with some fragmentation in the midportion of the study. Overall sleep efficiency was 54% due to periods of wake early and late in the test. The patient's EKG showed an irregular rhythm with an average rate of 65 beats per minute. EEG showed normal waveforms for awake and sleep. There were 129 respiratory events identified of 10 seconds in duration or greater for an apnea/hypopnea index of 29.3. The events were primarily obstructive, not exclusive to sleep stage nor body posture. Arousals from respiratory events were 12.7 times per hour and oxygen desaturations were seen surrounding respiratory events into the 70s. There was some limb activity, but arousals from limb events were few. IMPRESSION: Moderate to severe obstructive sleep apnea syndrome (G47.33). Apnea-hypopnea index 29.3. RECOMMENDATION: The patient should be encouraged to return to the sleep disorder center for pressure therapy. In the interim, alcohol and sedative avoidance should be practiced and caution exercised during the operation of motor vehicles.
== END ==
LOC: M SLEEP 19:41
PROVIDERS: ATTEND Nurse Practitioner Adult Health
DX: G47.30 Sleep apnea, unspecified (principal)

== ENCOUNTER → 2017-04-22 | Outpatient (CLI) | payer MEDICARE, BC, OTHER ==
[~2017-04-22] MED LIST changes: +CIPR-249 PO; -CIPR500T89 PO; +KEFL500C17 PO; -KEFL500C7 PO; -METO50TA2 PO; +METO50TA7 PO
--- NOTE | 2017-04-23 03:45 | REP ---
Clinical: Left-sided nephrolithiasis. Comparison: 01/31/2017. Findings: A pigtail catheter is identified in satisfactory position extending from the left renal pelvis to the bladder and the previously noted left-sided calculi and hydronephrosis have resolved. The right kidney again appears malrotated and without hydronephrosis. My mild chronic-appearing bilateral perinephric stranding is again appreciated and unchanged. No further nephrolithiasis or obvious renal abnormality appreciated. Liver, spleen, pancreas, bilateral adrenal glands are normal. The patient is status post cholecystectomy. The enteric system is without obstruction or acute inflammatory process. Postsurgical changes involving the anterior abdominal wall and right lower quadrant/cecum are appreciated and a small right ventral hernia containing nonobstructed small bowel in the anterior pelvic wall is again noted. Pelvis demonstrates normal bladder and evidence for prior hysterectomy. No ascites. No adenopathy. No free air. Abdominal aorta without aneurysm. Musculoskeletal structures demonstrate age-related degenerative changes. Lung bases are clear. Impression: 1. Left pigtail catheter in satisfactory position and the previously noted left-sided hydronephrosis and nephrolithiasis has resolved. Right kidney again appears malrotated and no further nephroureterolithiasis or obvious urinary tract abnormalities appreciated. 2. Postsurgical changes involving the right lower quadrant including suggestions for prior ventral hernia repair are identified with a small right lower anterior abdominal pelvic wall hernia containing nonobstructed small bowel loop. Signed by Shady Calderón MD 04/23/2017 03:36 A
== END ==
LOC: M RAD 09:17
PROVIDERS: ATTEND Urology
DX: N20.0 Calculus of kidney (principal)

== ENCOUNTER → 2017-05-09 | Outpatient (CLI) | payer BC, OTHER ==
[~2017-05-09] MED LIST changes: -CIPR-249 PO; +CIPR500T89 PO; -KEFL500C17 PO; +KEFL500C7 PO; +METO50TA2 PO; -METO50TA7 PO
--- NOTE | 2017-05-13 12:12 | SLEEPCENT ---
DATE OF STUDY: 05/09/2017 ORDERED BY: Carmina Child NP Nocturnal polysomnography was performed for titration of pressure therapy in this patient with obstructive sleep apnea syndrome, apnea-hypopnea index of 29.3. For testing, the patient was fit with a Kidzloop Eson nasal mask of medium size. 5 cm of water pressure were applied to the circuit and the lights were extinguished. 7 hours and 46 minutes of data were reviewed. There were 403 minutes of sleep identified. Sleep latency was normal at 9.5 minutes. Rapid eye movement (REM) latency was normal at 76 minutes. Sleep architecture was good with 4 REM periods appreciated. Overall sleep efficiency was 89.1%. The patient's EKG showed atrial fibrillation with a controlled ventricular response of 62 beats per minute. EEG showed normal wave forms for awake and sleep. Respiratory events were fully palliated with CPAP at a pressure of 10. CPAP tolerance was good. Remaining measure of sleep physiology were normal. IMPRESSION: Obstructive sleep apnea syndrome (G47.33). RECOMMENDATION: Nightly use of pressure therapy 10 cm of water.
== END ==
LOC: M SLEEP 19:44
PROVIDERS: ATTEND Nurse Practitioner Adult Health
DX: G47.33 Obstructive sleep apnea (adult) (pediatric) (principal)

== ENCOUNTER → 2020-03-01 | Outpatient (REF) | payer MEDICARE ==
[~2020-03-01] MED LIST changes: +CIPR-249 PO; -CIPR500T89 PO; +KEFL500C17 PO; -KEFL500C7 PO; -METO50TA2 PO; +METO50TA7 PO; -PRAD150C PO; +PRAD150C6 PO
[2020-03-01 18:22] LABS: APPEARANCE, URINE CLOUDY (CLEAR); BACTERIA, URINE AUTO 2+ (NEGATIVE); BILIRUBIN, URINE AUTO NEGATIVE (NEGATIVE); BLOOD, URINE BLOOD 3+ (NEGATIVE); COLOR, URINE YELLOW (YELLOW); GLUCOSE, URINE (UA) AUTO NEGATIVE (NEGATIVE); KETONE, URINE AUTO NEGATIVE (NEGATIVE); LEUKOCYTE ESTERASE, URINE AUTO 3+ (NEGATIVE); MUCUS, URINE SMALL (NEGATIVE); NITRITE, URINE AUTO NEGATIVE (NEGATIVE); PROTEIN, URINE AUTO NEGATIVE (NEGATIVE); RBC, URINE AUTO TNTC /HPF (0-3); SPECIFIC GRAVITY URINE AUTO 1.017 (1.002-1.035); SQUAMOUS EPITHELIAL CELL UR AU 12 /HPF (0-6); UROBILINOGEN, URINE AUTO 0.2 mg/dL (0.0-2.0); WBC, URINE AUTO 68 /HPF (0-3)
== END ==
LOC: M LAB REF 17:06
PROVIDERS: ATTEND Nurse Practitioner Family
DX: R31.0 Gross hematuria (principal)

== ENCOUNTER → 2020-03-09 | Outpatient (CLI) | payer MEDICARE, BC, OTHER ==
[~2020-03-09] MED LIST changes: +ISOVUE-370 76% 100ML VIAL (Q9967) As Ordered ONE
--- NOTE | 2020-03-09 11:26 | REP ---
CT ABDOMEN AND PELVIS WITH AND WITHOUT IV CONTRAST (CT UROGRAM): CT abdomen and pelvis performed prior to and following the intravenous administration of 100 mL Isovue 370. Sagittal, coronal and 3D MIP reconstruction images are performed. Comparison made with prior CT without contrast 04/22/2017. Visualized lung bases demonstrate no infiltrate. The liver demonstrates no mass. The patient has had a prior cholecystectomy. No biliary dilatation is seen. Spleen is normal size with no intrinsic abnormality. No adrenal mass is seen. Pancreas is unremarkable. Left kidney appears somewhat atrophic. No renal mass is seen. There is no hydroureteronephrosis. On precontrast images, an oval calculus is seen in the left renal pelvis, nonobstructive, measuring 1 x 6 mm. In the adjacent lower pole collecting system there are two calculi approximately 3 mm in diameter. Bladder is mildly distended with no stone or other gross abnormality. There mild atherosclerotic calcification of the abdominal aorta without aneurysm. There is no adenopathy. There is no free air or free fluid. There is no bowel wall thickening. Right lower quadrant abdominal wall hernia is again noted containing nonobstructed bowel loop. This was seen on the prior study. There is sigmoid diverticulosis without evidence of acute diverticulitis. Multiple metallic clips are seen in the right lower quadrant. No pelvic mass is seen. The patient appears to have had a hysterectomy. There are degenerative changes of the spine and hips. IMPRESSION: Left kidney is somewhat atrophic. There is an oval calculus in the left renal pelvis measuring about 11 x 6 mm. There are two adjacent 3 mm calculi on the left lower pole collecting system. No bladder abnormality. Right lower quadrant anterior abdominal wall hernia contains a nonobstructed bowel loop, as seen on prior CT. Sigmoid diverticulosis without acute diverticulitis. Electronically Signed by Bart Moses MD 03/09/2020 11:40 A
== END ==
LOC: M RAD 09:50
PROVIDERS: ATTEND Nurse Practitioner Family
DX: R31.0 Gross hematuria (principal)
CPT/HCPCS: 74178; Q9967

== ENCOUNTER → 2020-06-01 | Outpatient (CLI) | payer MEDICARE, BC, OTHER ==
[~2020-06-01] MED LIST changes: -ISOVUE-370 76% 100ML VIAL (Q9967) As Ordered ONE
--- NOTE | 2020-06-01 13:56 | REP ---
there are no prior ultrasounds for comparison. Prior CT showed left renal calculi. Right kidney measures 10.5 x 7.2 x 5.4 cm. The renal cortical echo is within normal limits. There is no hydronephrosis. There are no cystic or solid masses. Left kidney measures 9.9 x 4.2 x 4.9 cm. There is no evidence of hydronephrosis. The renal cortical echoes are diffusely increased and there is near obliteration of cortical medullary differentiation. Left kidney is seen in a markedly limited fashion. No abnormal echogenic foci are visible. Doppler of the urinary bladder was obtained solely for assessing for urojet phenomena which was not visualized on either side. IMPRESSION: 1. Unremarkable appearing right kidney. 2. Extremely limited visualization of the left kidney as described above. Electronically Signed by Cruz Edouard DO 06/01/2020 04:08 P
== END ==
LOC: M RAD 09:28
PROVIDERS: ATTEND Nurse Practitioner Family
DX: Z87.442 Personal history of urinary calculi (principal)

== ENCOUNTER → 2022-02-20 | Outpatient (CLI) | payer MEDICARE, BC, OTHER ==
[2022-02-20 13:24] LABS: CALCIUM LEVEL 9.3 MG/DL (8.8-10.2); CREATININE FOR GFR 1.33 MG/DL (0.55-1.30); GLOMERULAR FILTRATION RATE 42.1 (>45); MAGNESIUM LEVEL 2.1 MG/DL (1.8-2.4); POTASSIUM SERUM 4.4 MEQ/L (3.5-5.1)
== END ==
LOC: M RAD 10:50
PROVIDERS: ATTEND Physician Assistant
DX: I50.32 Chronic diastolic (congestive) heart failure (principal)

== ENCOUNTER → 2022-02-23 | Outpatient (CLI) | payer MEDICARE, BC, OTHER ==
[2022-02-23 11:15] LABS: CALCIUM LEVEL 9.3 MG/DL (8.8-10.2); CREATININE FOR GFR 1.2 MG/DL (0.55-1.30); GLOMERULAR FILTRATION RATE 47.4 (>45); POTASSIUM SERUM 3.8 MEQ/L (3.5-5.1)
== END ==
LOC: M RAD 08:44 → M LAB 08:44
PROVIDERS: ATTEND Physician Assistant
DX: Z01.810 Encounter for preprocedural cardiovascular examination (principal); I50.32 Chronic diastolic (congestive) heart failure

== ENCOUNTER → 2022-04-10 | Outpatient (CLI) | payer MEDICARE, BC, OTHER | LOC: M WHC 12:47 | PROVIDERS: ATTEND Nurse Practitioner | DX: C51.8 Malignant neoplasm of overlapping sites of vulva (principal); R59.0 Localized enlarged lymph nodes ==

== ENCOUNTER → 2022-05-07 | Outpatient (CLI) | payer MEDICARE, BC, OTHER | LOC: M RAD 10:30 | PROVIDERS: ATTEND Nurse Practitioner Women's Health | DX: N20.0 Calculus of kidney (principal) ==

== ENCOUNTER → 2022-07-19 | Outpatient (CLI) | payer MEDICARE, BC, OTHER | LOC: M WHC 12:41 | PROVIDERS: ATTEND Nurse Practitioner | DX: C51.9 Malignant neoplasm of vulva, unspecified (principal) ==

== ENCOUNTER → 2023-02-05 | Outpatient (CLI) | payer MEDICARE, BC, OTHER | LOC: M WHC 11:01 | PROVIDERS: ATTEND Obstetrics & Gynecology Gynecologic Oncology | DX: C51.9 Malignant neoplasm of vulva, unspecified (principal) ==

== ENCOUNTER → 2023-05-06 | Outpatient (CLI) | payer MEDICARE, BC, OTHER | LOC: M WHC 10:02 | PROVIDERS: ATTEND Urology | DX: N20.0 Calculus of kidney (principal) ==

== ENCOUNTER → 2023-05-14 | Outpatient (CLI) | payer MEDICARE, BC, OTHER | LOC: M WHC 10:53 | PROVIDERS: ATTEND Nurse Practitioner | DX: C51.9 Malignant neoplasm of vulva, unspecified (principal) ==

== ENCOUNTER → 2023-09-23 | Outpatient (CLI) | payer MEDICARE, BC, OTHER | LOC: M WHC 11:10 | PROVIDERS: ATTEND Obstetrics & Gynecology Gynecologic Oncology | DX: C51.9 Malignant neoplasm of vulva, unspecified (principal); C54.1 Malignant neoplasm of endometrium ==

== ENCOUNTER → 2024-01-20 | Outpatient (CLI) | payer MEDICARE, BC, OTHER | LOC: M WHC 11:00 | PROVIDERS: ATTEND Nurse Practitioner | DX: C51.9 Malignant neoplasm of vulva, unspecified (principal) ==

== ENCOUNTER → 2024-05-18 | Outpatient (CLI) | payer MEDICARE, BC | LOC: M WHC 10:44 | PROVIDERS: ATTEND Physician Assistant | DX: Z87.442 Personal history of urinary calculi (principal) ==